=== PATIENT | male | born 1990 | race Caucasian/White ===

== ENCOUNTER 2022-08-21 07:30 | Day surgery (SDC) | payer OTHER ==
[~2022-08-21] VITALS: Ht 172.7 cm; Wt 67.0 kg
--- NOTE | 2022-08-21 06:59 | NUR ---
Patient arrived to the ANR suite, identification and demographics confirmed. Patient to room 8, AAO and ambulatory, vitals obtained. ID/allergy/fall bands placed, changed into hospital gown, procedure and timeline explained. All questions answered, patient presents no concerns at this time.
--- NOTE | 2022-08-21 07:21 | NUR ---
Dr. Arora telephoned with patient intake information including usage, dose, last dose/time taken and initial vital signs. Patient history and allergies reviewed with MD. Orders received for 10 mg PO Valium and 0.2 mg PO Clonidine now. Will reassess per protocol and update MD with assessment and vitals.
[2022-08-21 07:30] VITALS: BP 133/95
[2022-08-21 07:42] LABS: HEMATOCRIT 44.4 % (39.0-50.0); HEMOGLOBIN 15.5 g/dl (14.0-18.0); IMMATURE GRANULOCYTES 0.3 % (0.0-5.0); MEAN CELL VOLUME 84.3 fL CALC (80.0-100.0); MEAN CORPUSCULAR HGB 29.4 pG CALC (26.0-32.0); MEAN CORPUSCULAR HGB CONC 34.9 g/dL CAL (32.0-36.0); NEUT# 2.81 thou/uL (1.82-7.42); RED BLOOD COUNT 5.27 mill/uL (4.70-6.10); RED CELL DISTRI WIDTH 11.6 % (11.5-15.5)
[2022-08-21 08:03] LABS: ALBUMIN 4.9 g/dL (3.2-5.0); ALKALINE PHOSPHATASE 92 u/l (38-126); ANION GAP 15 (6-22 (CALC)); BILIRUBIN, TOTAL 0.5 mg/dL (0.0-1.4); BUN 11 mg/dL (9-20); BUN/CREATININE RATIO 13 (12-20 (CALC)); CARBON DIOXIDE 27 mmol/l (22-30); CHLORIDE 101 mmol/l (95-108); CREATININE 0.8 mg/dL (0.7-1.3); GFR FOR AFR.AMER. > 60 ML/MIN (>=60 (CALC)); GFR OTHER RACES > 60 ML/MIN (>=60 (CALC)); POTASSIUM 3.9 mmol/l (3.5-5.1); SGOT/AST 30 u/l (17-59); SODIUM 139 mmol/l (137-146); TOTAL PROTEIN 7.5 g/dL (6.3-8.2)
[2022-08-21] MEDS ORDERED: SINGULAIR10 MG PO (08:09)
--- NOTE | 2022-08-21 09:32 | NUR ---
Patient resting comfortably in bed. Easily aroused, maintains focus, and drifts back to sleep. No signs of active withdrawal or distress noted at this time. Continuous SPO2, rhythm, and respiratory monitoring initiated. IVF @ 250 mL/HR, room air, VSS. MD informed of vital signs. per Dr Madison give patient Valium 5mg and 1L bolus. will reassess per protocol and inform MD.
--- NOTE | 2022-08-21 11:42 | NUR ---
Patient resting comfortably in bed. Easily aroused, maintains focus, and drifts back to sleep. No signs of active withdrawal or distress noted at this time. Continuous SPO2, rhythm, and respiratory monitoring, IVF @ 250 mL/HR, room air, VSS all reported to Dr. Madison. Per Dr. Madison give patient Valium 5mg po now. medication given.
--- NOTE | 2022-08-21 13:37 | NUR ---
Induction Note Patient to ANR procedure room. Time out performed at 1337. Patient placed on monitors, Evan hugger, bilateral wrist restraints applied for ET tube protection. Versed 5mg given IV push at 1338 Tourniquet applied to right arm Lidocaine 100mg given at 1339 IV push followed by Rocoronium 10mg at 1340 IV push and held for 90 seconds. Propofol bolus of 110mg given at 1341 IV push. Succinylcholine 80mg given IV push at 1342. Smooth intubation with 7.5 ETT. Positive CO2. Positive Auscultation for air exchange. Patient placed on ventilator for spontaneous ventilation. Placed on Propofol IV drip at 1343. OG inserted. Positive air on auscultation. Positive gastric content. Stomach washed at this time. Naltrexone 50mg given via OG tube with Clonidine 0.2 mg given via OG Tube. OG clamped for 45 minutes. Will monitor patient for symptoms of withdrawal and adjust propfol accordingly.
--- NOTE | 2022-08-21 14:40 | NUR ---
OG open note OG open at this time. Gastric content draining into drainage bag. OG to drain for 45 minutes. Propofol will be titrated down based on patient.
--- NOTE | 2022-08-21 15:35 | NUR ---
OG close note Stomach washed at this time. Naltrexone 50 mg with Clonidine 0.2 mg via OG tube. OG will be clamped for 45 minutes.
[2022-08-21] MEDS ORDERED: NALTREXONE50 MG PO (16:55)
[2022-08-21] MEDS ORDERED: CLONIDINE0.1 MG PO (16:56)
[2022-08-21] MEDS ORDERED: KLONOPIN2 MG PO (16:57)
--- NOTE | 2022-08-21 17:20 | NUR ---
OG close note Stomach washed at this time. Naltrexone 25 mg with Clonidine 0.1 mg via OG tube. OG will be clamped for 45 minutes.
--- NOTE | 2022-08-21 20:34 | NUR ---
Extubation note Closing medications given Benadryl 50mg IV push, Decadron 10mg IV push,Magnesium 4 grams IV, Zofran 8mg IV push, Octreotide 100mcg SC. Stomach washed out prior to extubation. Suctioned gastric content. OG removed. Patient extubated. Propofol Discontinued. Wrist restraints removed. Evan hugger Removed. See [facility]R Moderate sedate recovery record for further notes and assessment.
[2022-08-21 20:51] VITALS: BP 93/48
--- NOTE | 2022-08-21 21:03 | NUR ---
PT TRANSFERED TO [facility] 288 IN STABLE CONDTIONS. VSS. NO APPARENT DISTRESS NOTED. REPORT GIVEN TO COLLEEN HESS.
--- NOTE | 2022-08-21 21:07 | NUR ---
PATIENT RESTING IN BED WITH EYES CLOSED. CAME UP ON OXYGEN VIA NC AT 2L. NO DISTRESS NOTED. BED REMAINS IN LOW POSITION. BED ALARM ACTIVE.
[2022-08-21 22:31] VITALS: BP 106/61
--- NOTE | 2022-08-22 | NUR ---
PATIENT RESTING IN BED. HOB ELEVATED. PATIENT OCCASIONALLY BLOWS NOSE DO TOO IUNCREASED NASAL SECRETIONS. OXYGEN REMAINS ON. PATIENT IS ALERT AND ABLE TO MAKE NEEDS KNOWN. USES URINAL TO VOID. DRINKING WATER WITHOUT DIFFICULTY. BED REMAINS IN LOW POSITION. BED ALARM ACTIVE. CALL LIGHT IN REACH.
[2022-08-22 03:46] VITALS: BP 110/65
--- NOTE | 2022-08-22 04:58 | NUR ---
PATIENT RESTING IN BED ON HIS RIGHT SIDE. REMAINS ALERT AND ABLE TO MAKE NEEDS KNOWN. BED REMAINS IN LOW POSITION. CALL LIGHT IN REACH. BED ALARM ACTIVE.
[2022-08-22 05:20] LABS: HEMATOCRIT 39.5 % (39.0-50.0); HEMOGLOBIN 14.6 g/dl (14.0-18.0); IMMATURE GRANULOCYTES 0.4 % (0.0-5.0); MEAN CELL VOLUME 82.8 fL CALC (80.0-100.0); MEAN CORPUSCULAR HGB 30.6 pG CALC (26.0-32.0); NEUT# 9.49 thou/uL (1.82-7.42); RED BLOOD COUNT 4.77 mill/uL (4.70-6.10); RED CELL DISTRI WIDTH 11.5 % (11.5-15.5)
[2022-08-22 05:27] LABS: ALBUMIN 4.1 g/dL (3.2-5.0); ALKALINE PHOSPHATASE 93 u/l (38-126); ANION GAP 14 (6-22 (CALC)); BILIRUBIN, TOTAL 0.5 mg/dL (0.0-1.4); BUN 9 mg/dL (9-20); BUN/CREATININE RATIO 11 (12-20 (CALC)); CARBON DIOXIDE 24 mmol/l (22-30); CHLORIDE 106 mmol/l (95-108); CREATININE 0.8 mg/dL (0.7-1.3); GFR FOR AFR.AMER. > 60 ML/MIN (>=60 (CALC)); GFR OTHER RACES > 60 ML/MIN (>=60 (CALC)); MAGNESIUM 2.2 mg/dL (1.6-2.3); POTASSIUM 3.9 mmol/l (3.5-5.1); SGOT/AST 24 u/l (17-59); SODIUM 140 mmol/l (137-146); TOTAL PROTEIN 6.2 g/dL (6.3-8.2)
--- NOTE | 2022-08-22 07:00 | NUR ---
REPORT RECEIVED FROM [employer] PT RESTING IN BED, BREATHING EVEN AND UNLABORED. FALL/SAFTEY PRECAUTION IN PLACE, BED ALARM ACIVATED. CALL ELADIO FRIEDMAN
[2022-08-22 09:27] VITALS: BP 111/38
[2022-08-22 09:29] VITALS: BP 111/38
[2022-08-22 09:51] VITALS: BP 111/38
--- NOTE | 2022-08-22 12:15 | NUR ---
REORIENTATED PT TO ROOM. ENCOUARGED FOOD/FLUID INTAKE. NO DISTRESS NOTED. FALL/SAFTEY PRECAUTION IN PLACE. CALL LIGHT WITHIN REACH
--- NOTE | 2022-08-22 15:16 | NUR ---
Discharge instructions given. Patient verbalizes understanding of same. Discharged in stable condition via Wheelchair to Home with staff. All belongings sent with pt.
== END 2022-08-22 15:20 | disposition home or self-care (01) | DRG 897 ==
LOC: ANR 07:30 → ANR-I 07:30 → ANR 08:00 → MS2 21:05 → ANR 08-22 15:20
PROVIDERS: ATTEND Anesthesiology
DX: F11.20 Opioid dependence, uncomplicated (principal)
CPT/HCPCS: J2354